=== PATIENT | male | born 1950 | race Caucasian/White ===

== ENCOUNTER 2016-06-12 21:12 | Observation (INO) | payer OTHER ==
[~2016-06-12] VITALS: Ht 177.8 cm; Wt 97.0 kg
[~2016-06-12 21:12] MED LIST: AMLODIPINE BESY10 MG PO; ATENOLOL100 MG PO; BACTRIM,SEPT1 TABLET PO; CHOLESTYRAMINE378 GM PO; CIALIS5 MG PO; LIALDA1.2 GM PO; LO-DOSE ASPIRIN81 M1 PO; LOSARTAN POTAS100 MG PO; ONE-A-DAY MEN'1 EAC1 PO; PANTOPRAZOLE SO40 MG PO; PERCOCET 5/31 TABLET PO; PROBIOTIC1 EAC2 PO; VITAMIN B-125000 MC1 PO; XARELTO15 MG PO
[2016-06-12 22:10] LABS: EOSINOPHIL (%) 0.3 % (0-5); EOSINOPHIL COUNT 0.1 K/uL (0-0.3); HEMATOCRIT 36.4 % (38.0-50.0); IMMATURE GRANULOCYTE COUNT 1.7 K/uL; LYMPHOCYTE COUNT 0.8 K/uL (1.0-2.8); MCH 29.8 PG (29.0-34.0); MCHC 35.2 G/DL (30.0-36.0); MCV 84.8 FL (86-99); MEAN PLAT.VOLUME 9.5 uM^3 (9.0-12.4); MONOCYTE (%) 8.5 % (3-12); MONOCYTE COUNT 1.4 K/uL (0-0.8); NEUTROPHIL (%) 85.1 % (45-76); NEUTROPHIL COUNT 14.2 K/uL (1.8-6.4); PLATELET COUNT 256 K/uL (156-360); RBC DIS.WIDTH-CV 13.8 % (11.8-14.6); RBC DIS.WIDTH-SD 41.5 % (39-53); RED BLOOD COUNT 4.29 M/uL (4.00-5.50); WHITE BLOOD COUNT 16.7 K/uL (4.1-10.2)
[2016-06-12 22:19] LABS: CHLORIDE 106 mEq/L (99-109); SODIUM 140 mEq/L (136-147)
[2016-06-12 22:21] LABS: GLUCOSE 123 mg/dL (70-99)
[2016-06-12 22:22] LABS: ANION GAP 9 MEQ/L (2-14)
[2016-06-12 22:25] LABS: ALKALINE PHOSPHATASE 51 IU/L (3-129); GFR ESTIMATE (CALCULATED) 59 mL/min/
[2016-06-12 22:26] LABS: UREA NITROGEN (BUN) 14 mg/dL (9-23)
[2016-06-12 22:32] LABS: TROP-I INTERPRETATION NEGATIVE; TROPONIN-I < 0.01 ng/mL (0.0-0.30)
[2016-06-12 23:29] LABS: ADD MIUA? NO; BILIRUBIN NEGATIVE; BLOOD NEGATIVE; COLOR YELLOW ((YELLOW)); GLUCOSE (STRIP) NEGATIVE; KETONES NEGATIVE; LEUKOCYTES NEGATIVE; NITRITE NEGATIVE; PROTEIN (STRIP) NEGATIVE; SPECIFIC GRAVITY 1.012 (1.000-1.030); UCUL ADDED? NO; UROBILINOGEN 0.2 MG/DL (0.2-1.0)
[2016-06-12] MEDS ORDERED: XARELTO20 MG PO (23:41)
[2016-06-12] MEDS ORDERED: ATENOLOL50 MG PO (23:42)
[2016-06-12] MEDS ORDERED: SLOW RELEASE I142 M1 PO (23:44)
[2016-06-13 07:45] VITALS: BP 122/59; BP 129/64
[2016-06-13 08:19] VITALS: BP 141/67
[2016-06-13 11:48] VITALS: BP 135/68
[2016-06-13] MEDS ORDERED: AZITHROMYCIN500 M1 PO (11:51)
== END 2016-06-13 12:32 | disposition home or self-care (01) ==
LOC: EME 21:12 → EDOF 06-13 02:26 → 5WEST 06-13 02:26
PROVIDERS: Emergency Medicine
DX: R55 Syncope and collapse (principal); J06.9 Acute upper respiratory infection, unspecified; I10 Essential (primary) hypertension; Z86.718 Personal history of other venous thrombosis and embolism; Z79.01 Long term (current) use of anticoagulants; K21.9 Gastro-esophageal reflux disease without esophagitis; Z87.19 Personal history of other diseases of the digestive system; Z88.0 Allergy status to penicillin; Z88.5 Allergy status to narcotic agent; Z88.8 Allergy status to other drugs, medicaments and biological substances
CPT/HCPCS: 70450; 71010; 80053; 81003; 84484; 85025; 87040; 93005; 93880; 94640; 99202; 99281; 99285; G0378; J7030